=== PATIENT | female | born 1985 | race Hispanic/Latino ===

== ENCOUNTER 2017-09-16 07:00 | Inpatient (IN) | payer OTHER ==
[~2017-09-16] VITALS: Ht 149.9 cm; Wt 81.6 kg
[~2017-09-16 07:00] MED LIST: IBUPROFEN800 M1 PO; TRAMADOL HCL50 M1 PO
[2017-09-24 06:47] VITALS: BP 110/60
--- NOTE | 2017-09-24 09:01 | Operative Report ---
Operative/Inv Procedure Report Surgery Date: 09/24/17 Name of Procedure: Repeat low flap transverse section lysis of adhesions via Pfannenstiel skin incision tubal ligation Pre-Operative Diagnosis: To parity previous section term Post-Operative Diagnosis: same Estimated Blood Loss: 500 Surgeon/Letter Carrier: Felipe CALDERON,Iliana Allen and Dr. Ld watkins [facility] Anesthesia: block Operative/Procedure Note Note: Seasonal patient was taken the operating room placed prone position after adequate anesthesia patient placed in dorsolithotomy position the vagina was prepped and draped so fashion patient was returned spine position abdomen had been prepped and draped in sterile fashion a timeout had been performed and on the patient's anesthesia by pinprick And found to be adequate for surgery patient tolerated this well at this point through an old Pfannenstiel skin incision skin was cut was carried down to rectus fascia which was cut in curvilinear fashion I direction peritoneal cavity was entered high into the abdomen at this point the bladder adhesions to lower uterine segment were removed using on Metzenbaums on hemostasis was apparent the uterus was nicked in the lower uterine segment taken to with the back knife light meconium was noted at this point on since removed field the was delivered over the abdominal wall cord around the neck 1 was reducible was clamped and cut and the was handed to hvac specialist was waiting delivering to aid in resuscitation. Placenta was delivered manually noted to be intact intramyometrial and intravenous Pitocin was used to aid in uterine contractility which was apparent uses wiped clean with 2 wet dry laps to ensure was free of adherent membranes was oversewn running locking suture of 0 on at times 2 interrupted figure-of- eight's were used for hemostasis at this point odd the uterus was elevated the right tube in the isthmus was clamped using a [place] and oversewn 3 cut using Metzenbaums and the endosalpinx was Bovie coagulated left tube was picked up clamped with Jazmyn in the isthmus all oversewn 3 cut using Metzenbaums on and the endosalpinx was Bovie coagulated hemostasis was apparent the abdomen was irrigated comes amounts once until clear peritoneum was reapproximated after the incision and the pedicles have been reexamined and Edenilson had been applied to the surgical adhesion I area to prevent adhesions from the bladder to urinate lower uterine segment once again. This point peritoneum was reapproximated 0 fascia was reapproximated to continue sutures #1 subcutaneous tissue was Bovie quite was skin was reapproximated using cinthia at the end the case counts correct urine was clear mother and infant were transferred recovery room awake alert mother was informed of the tubal ligation as well . Findings: Viable infant normal tubes and ovaries bilaterally adhesions from the bladder to the lower uterine segment otherwise normal anatomy
--- NOTE | 2017-09-24 09:06 | History & Physical Pre-Op ---
General Information and HPI MD Statement: I have seen and personally examined ENEIDA SILVA and documented this H&P. The patient is a 32 year old F who presented with a patient stated chief complaint of previous section multiparity []. History of Present Illness: 31-year-old 3 para 2001 at 40-3/7 weeks gestation for repeat section and tubal ligation. Patient has had adequate care on she has had multiple visits for muscular pains during her . 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 Isolation History: Standard Surgical History Pertinent Surgical History: non-contributory Past Family/Social History Psychosocial History Smoking Status: Never Smoked Review of Systems Review of Systems: 13 point review of systems as stated in the HPI Exam & Diagnostic Data Last 24 Hrs of Vital Signs/I&O Vital Signs Date Time Temp Pulse Resp B/P B/P Pulse O2 O2 Flow FiO2 Mean Ox Delivery Rate 09/24 0647 110/60 Intake & Output 09/24 1600 09/24 0800 04 0000 Intake Total Output Total Balance Patient 180 lb Weight Physical Exam: Petite female speaking old HEENT anicteric abdomen soft nontender estimated weight 3200 g evidence of a Pfannenstiel skin incision 2 fingerbreadths of symptoms pubis On extremities negative edema negative Homans Assessment/Plan Assessment/Plan: Rekha is term multiparity previous section plan is for a section antibiotics and tubal ligation risks of tubal ligation failure rates 1 every 20/50 that we do reviewed with patient As Ranked By This Provider Problem List: 1.
[2017-09-25 08:57] LABS: ABSOLUTE BASOPHIL COUNT 0.1 /CUMM (0.0-0.2); ABSOLUTE EOSINOPHIL COUNT 0.1 /CUMM (0.0-0.7); ABSOLUTE GRANULOCYTE CT 9.7 /CUMM (1.4-6.5); ABSOLUTE LYMPH COUNT 1.7 /CUMM (1.2-3.4); ABSOLUTE MONOCYTE COUNT 0.9 /CUMM (0.10-0.60); BASOPHIL % 0.5 % (0.0-2.0); EOSINOPHIL % 0.9 % (0-5); GRANULOCYTE % 77.6 % (42.2-75.2); HEMATOCRIT 31.6 % (37-47); MEAN CORPUSCULAR HGB 25.2 PG (27.0-31.0); MEAN CORPUSCULAR HGB CONC 31.7 G/DL (33.0-37.0); MEAN CORPUSCULAR VOLUME 79.6 FL (81.0-99.0); MEAN PLATELET VOLUME 10.2 FL (7.4-10.4); PLATELET COUNT 184 /CUMM (130-400); RBC DISTRIBUTION WIDTH 14.7 % (11.5-14.5); RED BLOOD CELL CT 3.98 /CUMM (4.20-5.40); WHITE BLOOD CELL COUNT 12.4 /CUMM (4.8-10.8)
--- NOTE | 2017-09-25 09:15 | PN- Post Delivery/GYN ---
Subjective Subjective: No complaints Objective Last 24 Hrs of Vital Signs/I&O As per paper chart Physical Exam: Thin female no apparent distress HEENT anicteric Lungs clear Abdomen soft distention Fundus firm nontender Extremities negative edema negative Homans Lochia minimal Assessment/Plan Assessment/Plan Assessment is status post section tubal ligation Plan check CB C advanced diet advance ambulation remove Mata
[2017-09-26] MEDS ORDERED: IBUPROFEN800 M1 PO (09:04)
[2017-09-26] MEDS ORDERED: PERCOCET 5-3251 EACH PO (09:04)
== END 2017-09-26 15:00 | DRG 540 ==
LOC: GNO 09-24 06:02
PROVIDERS: Specialist
PROC: 10D00Z1 Extraction of Products of Conception, Low, Open Approach (ICD-10-PCS; principal; 2017-09-24)
PROC: 0UL70CZ Occlusion of Bilateral Fallopian Tubes with Extraluminal Device, Open Approach (ICD-10-PCS; principal; 2017-09-24)
PROC: 3E0P05Z Introduction of Adhesion Barrier into Female Reproductive, Open Approach (ICD-10-PCS; principal; 2017-09-24)
DX: O34.211 Maternal care for low transverse scar from previous cesarean delivery (principal); O69.81X0 Labor and delivery complicated by cord around neck, without compression, not applicable or unspecified; Z3A.40 40 weeks gestation of pregnancy; Z37.0 Single live birth
CPT/HCPCS: GNOS; 36415; 81001; 87086; 88302; J0690; J1885; J2405; J2765; J7120